=== PATIENT | female | born 1955 | race Caucasian/White ===

== ENCOUNTER 2016-04-26 22:12 | Emergency (ER) | payer MEDICAID, OTHER ==
[2016-04-26 22:19] VITALS: TEMP 97.9; BMI 21.7
[2016-04-26] MEDS ORDERED: Albuterol/Ipratropium Neb 3 ML NEB NEB ONE (23:44)
[2016-04-26] MEDS ORDERED: PREDNISONE 20 MG TAB PO ONE (23:44)
[2016-04-27] MEDS ORDERED: OXYCODONE HCL 5 MG TABLET PO ONE (00:10)
[2016-04-27] MEDS ORDERED: PROMETHAZINE 25 MG TAB PO ONE (00:30)
--- NOTE | 2016-04-27 01:26 | DIRPT ---
CLINICAL DATA: Acute onset of generalized chest pain, congestion, cough, headache and shortness of breath. Initial encounter. EXAM: CHEST 2 VIEW COMPARISON: Chest radiograph performed 04/13/2015 FINDINGS: The lungs are hyperexpanded, with flattening of the hemidiaphragms, compatible with COPD. There is no evidence of focal opacification, pleural effusion or pneumothorax. The heart is normal in size; the mediastinal contour is within normal limits. No acute osseous abnormalities are seen. IMPRESSION: Findings of COPD. Lungs remain grossly clear. Electronically Signed By: Jose Rodgers M.D. On: 04/27/2016 01:24
--- NOTE | 2016-04-27 02:14 | EDPRACDOC ---
- General Information Chief Complaint: Generalized Weakness Stated Complaint: HEADACHE & SHOB Time Seen by Provider: 04/26/16 23:38 Information Source: Patient Mode Of Arrival: Car Home Medications: Home Medications Clonazepam [Klonopin] 1 mg PO TID 07/13/13 Escitalopram Oxalate [Lexapro] 15 mg PO DAILY 04/10/14 Gabapentin [Neurontin] 600 mg PO TID 02/21/15 Quetiapine Fumarate [Seroquel] 200 mg PO QHS 03/31/15 Albuterol Sulfate Nebs [Proventil, Ventolin] 3 ml INH Q4-6H PRN 09/19/15 Albuterol Sulfate [Proair Hfa] 2 puff INH Q4-6H PRN 09/19/15 Gemfibrozil [Lopid] 600 mg PO BID 09/19/15 Levothyroxine [Synthroid, Levoxyl] 75 mcg PO DAILY 09/19/15 Loratadine [Claritin] 10 mg PO DAILY 09/19/15 Mometasone/Formoterol [Dulera 200 Mcg/5 Mcg Inhaler] 2 puff INH BID 09/19/15 Nebulizer [Needs Home Nebulizer] 1 item NEB DIR 09/19/15 Promethazine HCl 25 mg PO Q4-6H PRN 09/19/15 Tiotropium [place] [Spiriva] 18 mcg INH DAILY 09/19/15 Tramadol HCl [Ultram] 50 - 100 mg PO TID PRN 09/19/15 Ciprofloxacin HCl [Cipro] 500 mg PO BID #20 tab 10/23/15 Ibuprofen 600 mg PO TID #20 tablet 10/23/15 Phenazopyridine [Pyridium] 100 mg PO TID #30 tab 10/23/15 Promethazine [Phenergan] 25 mg PO Q6-8H PRN #20 tab 10/23/15 Azithromycin [Zithromax] 250 mg PO DAILY #6 tablet 04/27/16 Hydrocodone/Chlorphen Polis [Tussionex] 5 ml PO BID PRN #60 udc 04/27/16 Prednisone [Deltasone, Orasone] 20 mg PO DAILY #20 tab 04/27/16 Allergies/Adverse Reactions: Allergies Allergy/AdvReac Type Severity Reaction Status Date / Time ondansetron HCl Allergy Severe Headache Verified 10/23/15 14:37 [From Zofran (as hydrochloride)] aspirin Allergy Intermediate Nausea/Vomi Verified 10/23/15 14:37 ting meperidine HCl [From Demerol] Allergy Mild Hives* Verified 10/23/15 14:37 acetaminophen Allergy See Verified 10/23/15 14:37 Comments tramadol Allergy Nausea/Vomi Verified 10/23/15 14:37 ting - History of Present Illness Onset: SEVERAL DAYS HPI: WATERY DISCHARGE BILATERAL EYES YELLOW CRUSTING IN THE MORNING MATTED. RUNNY NOSE CLEAR DISCHARGE. NONPRODUCTIVE COUGH FOR 1 DAY. HEADACHE GENERALIZED SLOW ONSET AGGRAVATED BY MOVEMENT LIGHT ALLEVIATED BY REST. Current Symptoms: Reports: Cough, Fever (LOW GRADE), Headache, Nasal Symptoms, Myalgia, Nausea. Denies: Vomiting Shortness of Breath: Mild Cough: Reports: Non-productive Rhinorrhea: Reports: Clear Ear Symptoms: Reports: None Fever Severity/Quality: Reports: subjective Oral Intake: Normal Urinary Output: Normal ED Past Medical History - History Reviewed Yes Nurses notes reviewed and agree except as marked - Patient Medical History Neurological History: Denies: Seizures (PSEUDOSEIZURE AND CONVERSION DISORDER) Cardiac History: Reports: Syncope Respiratory History: Reports: COPD, Pneumonia (2014), Emphysema GI/ History: Reports: Renal Disease (CKD with baseline creatinine between 1.00 and 1.20.), Urinary Tract Infection Psychological History: Reports: Depression, Anxiety, Bipolar Disorder. Denies: Substance Use Disorder Systemic History: Reports: Hypothyroidism (NOT CURRENTLY MEDICATED). Denies: Anemia Surgical History: Reports: Other (BREAST CYST REMOVAL). Denies: Hysterectomy - Family Medical History Reports: Hypertension (DAD, SON,). Denies: Cancer, Stroke, Cardiac Disorders - Social Medical History Smoking Status: Heavy tobacco smoker (5 or more cigarettes/day or daily pipe/ cigar) Social History: Denies: Substance Use Disorder EDM Review of Systems - Review of Systems ROS Negative Except as Marked: Yes All systems reviewed and were negative except as marked - Physical Exam Constitutional: Alert (Awake), Distress (MILDLY UNCOMFORTABLE) Oriented to: Time, Person, Place Last recorded Vital Signs: Last Vital Signs Temp 97.9 F 04/26/16 22:15 Pulse 70 04/27/16 01:09 Resp 20 04/27/16 01:09 BP 97/53 L 04/27/16 01:09 Pulse Ox 95 04/27/16 01:09 Oxygen Pulse Oxygen Saturation 95 O2 Device Room Air Oxygen Flow Rate Fraction of Inspired Oxygen ( FIO2) - HEENT Head: Normal ( normocephalic) Eye Exam: Conjunctival Injection. negative: Pale Conjunctiva, Scleral Icterus Oropharynx: Normal (Pharynx:Moist without exudate,Gums-no swelling). negative: Membranes Dry Tympanic Membrane: Normal ENT EAC: Normal TMJ: Normal Nose: Congestion, Discharge Neck: Normal (FROM, trachea at midline). negative: Edema, Limited ROM, Lymphadenopathy, Meningeal Signs - Respiratory/Cardiovascular Respiratory: Normal - CTA (BBS clear to auscultation without adventitious sounds ), Rhonchi (MILDMILD), Wheezes (MILD) Cardiovascular: Normal (RRR without murmur, gallop or rub) - GI Auscultation: Normal (NABS) Palpation: Normal (Soft,No rebound or guarding, non distended) Tenderness: Non tender Leonardo's Sign: Negative - Musculoskeletal Back: Normal (Non-Tender) Extremities: Normal (Normal tone, Pulses 2+ No cyanosis or edema, FROM) - Integumentary Skin: Normal, Warm, Dry Lymphatics: Normal (no adenopathy) - Neurologic Memory Impaired: Normal Motor Function: Normal (Normal tone, Pulses 2+ No cyanosis or edema, FROM) Cranial Nerve: Normal (CN II-X11 intact sensation, strength 5/5) Cerebellar: Normal Mood Description: Normal Perception: Normal - Diagnostic Imaging Chest Image interpreted by: Radiologist Patient Name: ARMANDO CARRINGTON LOC: ED : 1955 AGE: 61 Order Date:04/26/16 Date of Service: Report # [id number] Ord Physician: Lakesha Ferreira MD Exam # [id number] Emergency Physician: Lakesha Ferreira MD Exam(s): [id number] RAD/DG CHEST 2V CLINICAL DATA: Acute onset of generalized chest pain, congestion, cough, headache and shortness of breath. Initial encounter. EXAM: CHEST 2 VIEW COMPARISON: Chest radiograph performed 04/13/2015 FINDINGS: The lungs are hyperexpanded, with flattening of the hemidiaphragms, compatible with COPD. There is no evidence of focal opacification, pleural effusion or pneumothorax. The heart is normal in size; the mediastinal contour is within normal limits. No acute osseous abnormalities are seen. IMPRESSION: Findings of COPD. Lungs remain grossly clear. Electronically Signed By: Jose Rodgers M.D. On: 04/27/2016 01:24 Electronically Signed By: Jose Rodgers MD Electronically Signed Date/Time: Dictate Date/Time: 04/27/16121 Technologist: Kitty Kwan Transcribed By: Daniel Transcribed Date/Time: 04/27/16 0124 - Departure Disposition: Home Condition: Stable Final Diagnosis: Upper respiratory infection, COPD exacerbation, Headache Instructions: Weakness (General), Headache, Headache,FAQ's, COPD (Chronic Obstructive Pulmonary Disease) (ED) Education/Counseling Given To: Patient, Family Member Education/Counseling Given Regarding: Diagnosis, Treatment, Prognosis Referrals: Dawood Duvall MD [Primary Care Provider] - One Week Prescriptions: New Azithromycin [Zithromax] 250 mg PO DAILY #6 tablet Hydrocodone/Chlorphen [place] [Tussionex] 5 ml PO BID PRN #60 udc PRN Reason: Cough Prednisone [Deltasone, Orasone] 20 mg PO DAILY #20 tab No Action Clonazepam [Klonopin] 1 mg PO TID Escitalopram Oxalate [Lexapro] 15 mg PO DAILY Gabapentin [Neurontin] 600 mg PO TID Quetiapine Fumarate [Seroquel] 200 mg PO QHS Tiotropium [place] [Spiriva] 18 mcg INH DAILY Loratadine [Claritin] 10 mg PO DAILY Levothyroxine [Synthroid, Levoxyl] 75 mcg PO DAILY Nebulizer [Needs Home Nebulizer] 1 item NEB DIR Mometasone/Formoterol [Dulera 200 Mcg/5 Mcg Inhaler] 2 puff INH BID Gemfibrozil [Lopid] 600 mg PO BID Albuterol Sulfate Nebs [Proventil, Ventolin] 3 ml INH Q4-6H PRN PRN Reason: Shortness Of Breath Tramadol HCl [Ultram] 50 - 100 mg PO TID PRN PRN Reason: Pain Promethazine HCl 25 mg PO Q4-6H PRN PRN Reason: Nausea/Vomiting Albuterol Sulfate [Proair Hfa] 2 puff INH Q4-6H PRN PRN Reason: Shortness Of Breath Ciprofloxacin HCl [Cipro] 500 mg PO BID #20 tab Ibuprofen 600 mg PO TID #20 tablet Phenazopyridine [Pyridium] 100 mg PO TID #30 tab Promethazine [Phenergan] 25 mg PO Q6-8H PRN #20 tab PRN Reason: Nausea/Vomiting
[2016-04-27 02:32] VITALS: BP 104/56; PULSE 75
== END 2016-04-27 02:31 | disposition home or self-care (01) ==
LOC: ED 22:12
DX: J06.9 Acute upper respiratory infection, unspecified (principal); J44.1 Chronic obstructive pulmonary disease with (acute) exacerbation; R51 Headache; F17.200 Nicotine dependence, unspecified, uncomplicated
CPT/HCPCS: 71020; 94640; 99283; J3490; J7620